=== PATIENT | male | born 1960 | race Two or more races ===

== ENCOUNTER 2018-03-14 15:04 | Observation (INO) | payer OTHER ==
[~2018-03-14] VITALS: Ht 175.3 cm; Wt 90.3 kg
[~2018-03-14 15:04] MED LIST: BACL20TA PO; IBUP-1060 PO; LISI10TA2 PO; OXYC5CAP PO; PANT40TA5 PO
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
--- NOTE | 2018-03-14 15:26 | EKG ---
[facility] [address] [place] [address] Test Date: 2018-03-14 Test Time: 15:12:18 Pat Name: DOUG REY Department: Room: Gender: M Front End Architect: : [id number] Requested By: VENTURA HUNTLEY Order Number: [id number] Reading MD: Steven Armenta MD Measurements Intervals Harriet Rate: 88 P: 26 PA: 172 QRS: 14 QRSD: 76 T: 45 QT: 346 QTc: 422 Interpretive Statements SINUS RHYTHM Electronically Signed On 03-15-2018 10:02:01 SUPERINTENDENT STATIONS by Steven Armenta MD
--- NOTE | 2018-03-14 15:45 | RAD ---
Exam: AP portable chest History: Chest pain for 4 days, hypertension. Comparison: September 20, 2015. Findings: The heart and mediastinal structures are within normal limits for size. Lungs are without infiltrate. No pleural effusion or pneumothorax is identified. Impression: 1. No acute cardiopulmonary process. Electronically signed by: Miguel A Osborne MD (03/14/2018 3:41 PM) [facility], [facility]
[2018-03-14 15:56] LABS: BASO # 0.1 x10^3/uL (0.0-0.2); BASO % 1 % (0-3); EOS # 0.3 x10^3/uL (0.0-0.7); EOS % 5 % (0-3); HEMATOCRIT 45.6 % (39.0-53.0); HEMOGLOBIN 15.8 g/dL (13.0-17.5); LYMPH % 26 % (24-48); MEAN CORPUSCULAR HEMOGLOBIN 30 pg (25-35); MEAN CORPUSCULAR HGB CONC 35 g/dL (31-37); MEAN CORPUSCULAR VOLUME 87 fL (79-100); MONO # 0.8 x10^3/uL (0.0-1.1); MONO % 10 % (0-9); NEUT # 4.5 x10^3uL (1.8-7.7); NEUT % 58 % (31-73); PLATELET COUNT 235 x10^3/uL (140-400); RED BLOOD COUNT 5.26 x10^6/uL (4.30-5.70); RED CELL DISTRIBUTION WIDTH 13.1 % (11.5-14.5); WHITE BLOOD COUNT 7.6 x10^3/uL (4.0-11.0)
[2018-03-14 16:05] LABS: ANION GAP 10 (6-14); BLOOD UREA NITROGEN 10 mg/dL (8-26); CARBON DIOXIDE 26 mmol/L (21-32); CHLORIDE 104 mmol/L (98-107); CREATININE 0.9 mg/dL (0.7-1.3); GFR 87.6; GLUCOSE 179 mg/dL (70-99); POTASSIUM 4.3 mmol/L (3.5-5.1); PROTHROMBIN TIME PATIENT 14.4 SEC (11.7-14.0); SODIUM 140 mmol/L (136-145)
[2018-03-14 16:18] LABS: ALBUMIN 3.9 g/dL (3.4-5.0); ALK PHOS 102 U/L (46-116); ALT (SGPT) 112 U/L (16-63); AST (SGOT) 43 U/L (15-37); DIRECT BILIRUBIN < 0.1 mg/dL (0.0-0.2); LIPASE 134 U/L (73-393); TOTAL BILIRUBIN 0.4 mg/dL (0.2-1.0); TOTAL PROTEIN 7.3 g/dL (6.4-8.2)
[2018-03-14 17:26] VITALS: BP 150/92
[2018-03-14] MEDS ORDERED: LOSA-73 PO (17:36)
[2018-03-14] MEDS ORDERED: ASPI-612 PO (17:56)
[2018-03-14] MEDS: ACETAMINOPHEN 325 MG TABLET. PO PRN (18:17)
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
[2018-03-14] MEDS ORDERED: BACLOFEN 10 MG TABLET. PO PRN (18:34)
[2018-03-14] MEDS ORDERED: oxyCODONE IR 5 MG TABLET PO PRN (18:34)
[2018-03-14 19:00] VITALS: BP 128/77
[2018-03-14] MEDS ORDERED: BACLOFEN 10 MG TABLET. PO SCH (21:00)
[2018-03-14] MEDS ORDERED: oxyCODONE IR 5 MG TABLET PO SCH (21:00)
[2018-03-14 23:00] VITALS: BP 132/78
[2018-03-15 03:00] VITALS: BP 118/64
[2018-03-15 05:13] LABS: BASO # 0.1 x10^3/uL (0.0-0.2); BASO % 1 % (0-3); EOS # 0.6 x10^3/uL (0.0-0.7); EOS % 10 % (0-3); HEMATOCRIT 45.8 % (39.0-53.0); HEMOGLOBIN 15.9 g/dL (13.0-17.5); LYMPH # 1.6 x10^3/uL (1.0-4.8); LYMPH % 29 % (24-48); MEAN CORPUSCULAR HEMOGLOBIN 30 pg (25-35); MEAN CORPUSCULAR HGB CONC 35 g/dL (31-37); MEAN CORPUSCULAR VOLUME 87 fL (79-100); MONO # 0.8 x10^3/uL (0.0-1.1); MONO % 14 % (0-9); NEUT # 2.6 x10^3uL (1.8-7.7); NEUT % 46 % (31-73); PLATELET COUNT 209 x10^3/uL (140-400); RED BLOOD COUNT 5.28 x10^6/uL (4.30-5.70); WHITE BLOOD COUNT 5.6 x10^3/uL (4.0-11.0)
[2018-03-15 05:23] LABS: CALCIUM 9.1 mg/dL (8.5-10.1); CREATININE 0.9 mg/dL (0.7-1.3); GFR 87.6; POTASSIUM 4.2 mmol/L (3.5-5.1)
[2018-03-15 05:32] LABS: CHOLESTEROL/HDL RATIO 4.1
[2018-03-15 07:00] VITALS: BP 138/83
[2018-03-15] MEDS ORDERED: PANTOPRAZOLE 40 MG TABLET.DR. PO SCH (07:30)
[2018-03-15 08:31] VITALS: BP 138/83
[2018-03-15] MEDS: ACETAMINOPHEN 325 MG TABLET. PO PRN (08:31)
[2018-03-15] MEDS ORDERED: ASPIRIN ENTERIC COATED 81 MG TABLET.DR. PO SCH (09:00)
[2018-03-15] MEDS ORDERED: LISINOPRIL 10 MG TABLET PO SCH (09:00)
[2018-03-15] MEDS ORDERED: LOSARTAN POTASSIUM 50 MG TABLET. PO SCH (09:00)
--- NOTE | 2018-03-15 10:29 | CONS ---
DATE OF CONSULTATION: 03/15/2018 please see consult dictation MTDD
--- NOTE | 2018-03-15 10:52 | CONS ---
DATE OF CONSULTATION: 03/15/2018 REASON FOR CONSULTATION: Chest pain. HISTORY OF PRESENT ILLNESS: The patient is a pleasant 57-year-old man coming to the hospital in the setting of atypical chest pain. Due to language barrier, most of the information is obtained from the chart and translation from his son. He apparently had some chest pain over the course of the last several months and reports that he may have had a cardiac catheterization through [facility]. Currently, he denies any chest pain and denies any chest pain with activities such as working or walking. No syncope or palpitations. He reports some chest pain that kind of goes down to his arm and is sharp in nature over his left chest, but otherwise no significant alleviating or exacerbating factors. PAST MEDICAL HISTORY: 1. Hypertension. 2. Tobacco abuse. FAMILY HISTORY: Notable for dyslipidemia. REVIEW OF SYSTEMS: Negative for 10 out of 14 systems reviewed, unless otherwise mentioned above in the HPI. CARDIOVASCULAR MEDICATIONS: Currently only on losartan and aspirin. PHYSICAL EXAMINATION: VITAL SIGNS: Stable. GENERAL: Alert and oriented x 3. HEAD AND NECK EXAMINATION: Unremarkable. CARDIAC: Regular rate and rhythm, without any murmurs, rubs or gallops. LUNGS: Clear to auscultation bilaterally. ABDOMEN: Soft, nontender and nondistended. EXTREMITIES: No clubbing, cyanosis or edema. NEUROLOGIC: No focal deficits. MUSCULOSKELETAL: No trauma. DIAGNOSTIC STUDIES: Cardiac enzymes negative x 3, with a negative EKG and normal chest x-ray. IMPRESSION: Atypical chest pain with presumed normal cardiac catheterization at 4 months ago. RECOMMENDATIONS: Continue risk-factor modification including tobacco cessation, aspirin and blood pressure management. Lipid control per primary care physician on an outpatient setting. We will await records from [facility]. If there is no significant coronary disease, okay to safely discharge; otherwise, could consider outpatient stress testing. Thank you for this consultation. BECKI ARELLANO MD DR: ROGELIO/david JOB#: [id number] / [id number]
--- NOTE | 2018-03-15 11:27 | PDOC3 ---
IM DISCHARGE SUMMARY Date of Admission Date of Admission Date of Admission: Mar 14, 2018 at 16:16 Date of Discharge Date of Discharge March 15, 2018 Primary Diagnosis Primary Diagnosis Chest pain- musculoskeletal: Hypertension Gastroesophageal reflux disease Consults Consults Fredy Talley MD Labs Labs Laboratory Tests Test 03/14/18 15:45 03/14/18 19:40 03/14/18 23:20 03/15/18 05:00 White Blood Count 7.6 x10^3/uL (4.0-11.0) 5.6 x10^3/uL (4.0-11.0) Red Blood Count 5.26 x10^6/uL (4.30-5.70) 5.28 x10^6/uL (4.30-5.70) Hemoglobin 15.8 g/dL (13.0-17.5) 15.9 g/dL (13.0-17.5) Hematocrit 45.6 % (39.0-53.0) 45.8 % (39.0-53.0) Mean Corpuscular Volume 87 fL (79-100) 87 fL (79-100) Mean Corpuscular Hemoglobin 30 pg (25-35) 30 pg (25-35) Mean Corpuscular Hemoglobin Concent 35 g/dL (31-37) 35 g/dL (31-37) Red Cell Distribution Width 13.1 % (11.5-14.5) 13.0 % (11.5-14.5) Platelet Count 235 x10^3/uL (140-400) 209 x10^3/uL (140-400) Neutrophils (%) (Auto) 58 % (31-73) 46 % (31-73) Lymphocytes (%) (Auto) 26 % (24-48) 29 % (24-48) Monocytes (%) (Auto) 10 % (0-9) 14 % (0-9) Eosinophils (%) (Auto) 5 % (0-3) 10 % (0-3) Basophils (%) (Auto) 1 % (0-3) 1 % (0-3) Neutrophils # (Auto) 4.5 x10^3uL (1.8-7.7) 2.6 x10^3uL (1.8-7.7) Lymphocytes # (Auto) 2.0 x10^3/uL (1.0-4.8) 1.6 x10^3/uL (1.0-4.8) Monocytes # (Auto) 0.8 x10^3/uL (0.0-1.1) 0.8 x10^3/uL (0.0-1.1) Eosinophils # (Auto) 0.3 x10^3/uL (0.0-0.7) 0.6 x10^3/uL (0.0-0.7) Basophils # (Auto) 0.1 x10^3/uL (0.0-0.2) 0.1 x10^3/uL (0.0-0.2) Prothrombin Time 14.4 SEC (11.7-14.0) Prothromb Time International Ratio 1.2 (0.8-1.1) Activated Partial Thromboplast Time 28 SEC (24-38) Sodium Level 140 mmol/L (136-145) 143 mmol/L (136-145) Potassium Level 4.3 mmol/L (3.5-5.1) 4.2 mmol/L (3.5-5.1) Chloride Level 104 mmol/L (98-107) 106 mmol/L (98-107) Carbon Dioxide Level 26 mmol/L (21-32) 27 mmol/L (21-32) Anion Gap 10 (6-14) 10 (6-14) Blood Urea Nitrogen 10 mg/dL (8-26) 12 mg/dL (8-26) Creatinine 0.9 mg/dL (0.7-1.3) 0.9 mg/dL (0.7-1.3) Estimated GFR (Cockcroft-Gault) 87.6 87.6 Glucose Level 179 mg/dL (70-99) 117 mg/dL (70-99) Calcium Level 9.0 mg/dL (8.5-10.1) 9.1 mg/dL (8.5-10.1) Total Bilirubin 0.4 mg/dL (0.2-1.0) Direct Bilirubin < 0.1 mg/dL (0.0-0.2) Aspartate Amino Transf (AST/SGOT) 43 U/L (15-37) Alanine Aminotransferase (ALT/SGPT) 112 U/L (16-63) Alkaline Phosphatase 102 U/L (46-116) Troponin I Quantitative < 0.017 ng/mL (0.000-0.055) < 0.017 ng/mL (0.000-0.055) < 0.017 ng/mL (0.000-0.055) JK-Lxa-Y-Type Natriuretic Peptide 12 pg/mL (0-124) Total Protein 7.3 g/dL (6.4-8.2) Albumin 3.9 g/dL (3.4-5.0) Lipase 134 U/L (73-393) Triglycerides Level 67 mg/dL (0-150) Cholesterol Level 123 mg/dL (0-200) LDL Cholesterol, Calculated 80 mg/dL (0-100) VLDL Cholesterol, Calculated 13 mg/dL (0-40) Non-HDL Cholesterol Calculated 93 mg/dL (0-129) HDL Cholesterol 30 mg/dL (40-60) Cholesterol/HDL Ratio 4.1 Brief hospital course Brief hospital course This 57 year old male who presented with chest pain with the pain on the left side of the chest radiating to the right shoulder was admitted for further evaluation and management. Cardiac workup was negative during the stay in the hospital. Serial EKG and troponin were unremarkable. Patient had a cardiac catheterization at [facility] 4 months ago[address]iscussed with Dr. Armenta who is waiting for that report. It is presumed normal. Once we get the records and if patient remains stable he will be discharged home. There is some language barrier. The pain atypical and likely musculoskeletal. I discussed with the patient and if he remains stable he'll go home on current home medications. I'll not give him any oxycodone as he does not have any need for that medicine. He also has history of heavy alcohol intake. I advised him to see Dr. Montague as outpatient in 5 days. Condition at the time of discharge stable For more details regarding the past history, family history, social history, surgical history and other details, please refer to History and Physical. Medications Medications reviewed and reconciled for discharge. Allergy Allergies Coded Allergies Type Severity Reaction Last Updated Verified No Known Drug Allergies 09/20/15 No Follow up With Dr. Montague in 5 days. DISPOSITION: Home Comments Discharge Management - 35 minutes. For other details please refer to discharge instructions ELISA KNIGHT MD Mar 15, 2018 11:27
--- NOTE | 2018-03-15 11:29 | DISCH ---
DISCHARGE INSTRUCTIONS Condition on Discharge Condition on Discharge: Stable Activity After Discharge Activity Instructions for Disc: Activity as tolerated Weight Bearing Status after Di: Full weight bearing Diet after Discharge Diet after Discharge: Cardiac, Regular Contacting the DRElana after DC Call your doctor for: Concerns you may have Follow-Up Follow up with: Dr. Montague in 5 days Treatment/Equipment after DC Adaptive Equipment Issued: None ELISA KNIGHT MD Mar 15, 2018 11:29
== END 2018-03-15 12:05 | disposition home or self-care (01) ==
LOC: ER 15:04 → CVICU 16:16 → 1 WEST ICU 03-15 07:25
PROVIDERS: ADMIT Internal Medicine; ATTEND Internal Medicine
DX: I10 Essential (primary) hypertension (principal); K21.9 Gastro-esophageal reflux disease without esophagitis; F17.210 Nicotine dependence, cigarettes, uncomplicated
CPT/HCPCS: 36415; 71045; 80048; 80061; 80076; 83690; 83880; 84484; 85025; 85610; 85730; 93005; 99284; G0378; G0379

== ENCOUNTER → 2019-02-06 | Outpatient (CLI) | payer OTHER ==
[~2019-02-06] MED LIST changes: +ASPI-612 PO; +CONTRAST GIVEN. MC PRN; +IOHEXOL 240 MG/ML 50ML VIAL. PO ONE; +IOHEXOL 300 MG/ML 100ML VIAL. IV ONE; +LOSA-73 PO; -PANT40TA5 PO; +PANT40TA77 PO
--- NOTE | 2019-02-06 15:28 | RAD ---
CT ABD PELV W/ORAL IV CONTRAST Indication: Diverticulosis. Exposure: One or more of the following individualized dose reduction techniques were utilized for this examination: 1. Automated exposure control 2. Adjustment of the mA and/or kV according to patient size 3. Use of iterative reconstruction technique. Technique: Intravenous contrast was given. Oral contrast was given. Comparison: None FINDINGS: Lung bases are clear. Liver is not enlarged and demonstrates no focal mass. Spleen unremarkable. Pancreas unremarkable. No evidence of adrenal mass. Tiny subcentimeter lesion of the left kidney is too small to characterize but may represent a cyst. No evidence of hydronephrosis. No calcified gallstone. Aorta is nonaneurysmal. Small aortocaval, mesenteric and inguinal lymph nodes are seen without evidence of pathologic enlargement. No significant small bowel distention. Colonic diverticulosis. No evidence of acute colitis. Appendix appears normal and opacifies with oral contrast media. No evidence of significant ascites. No evidence of pneumoperitoneum. Urinary bladder appears unremarkable. No evidence of pelvic mass. Vertebral body height and alignment are intact with spondylosis. Degenerative spurring at the left sacroiliac joint with a bridging osteophyte. Transitional anatomy at the left lumbosacral junction with pseudoarthrosis IMPRESSION: 1. Colonic diverticulosis without evidence of acute diverticulitis. 2. Tiny subcentimeter left renal lesion, too small to characterize but may represent a cyst. 3. Transitional anatomy at the left lumbosacral junction with degenerative changes and pseudarthrosis. Electronically signed by: Miguel A Jenkins MD (02/06/2019 3:25 PM) [id number]
== END | disposition home or self-care (01) ==
LOC: CT 08:47
PROVIDERS: ATTEND Internal Medicine
DX: K57.30 Diverticulosis of large intestine without perforation or abscess without bleeding (principal); N28.89 Other specified disorders of kidney and ureter; M47.817 Spondylosis without myelopathy or radiculopathy, lumbosacral region; M25.78 Osteophyte, vertebrae; M77.8 Other enthesopathies, not elsewhere classified
CPT/HCPCS: 74177; Q9966; Q9967

== ENCOUNTER → 2019-03-20 | Day surgery (SDC) | payer OTHER ==
[~2019-03-20] MED LIST changes: -CONTRAST GIVEN. MC PRN; +FAMO40TA4 PO; +HYDR25SU4 RC; +HYDROmorphone 2 MG/ML VIAL IV PRN; -IOHEXOL 240 MG/ML 50ML VIAL. PO ONE; -IOHEXOL 300 MG/ML 100ML VIAL. IV ONE; +IV RINGERS,LACTATED 1000ML 1,000 ML IV SCH; +LIDOCAINE 1% PF 2 ML VIAL. ID PRN; +LIDOCAINE 2% PF 5 ML VIAL. ONE; +MORPHINE SULFATE 2 MG/ML VIAL. IV PRN; +ONDANSETRON PF 4 MG/2 ML VIAL. IV PRN; +PROCHLORPERAZINE 10 MG/2 ML VIAL. IV PRN; +PROPOFOL 40 ML IV ONE; +fentaNYL PF VIAL 100 MCG/2 ML VIAL IV PRN
[2019-03-20 08:20] VITALS: BP 126/84
--- NOTE | 2019-03-20 17:18 | CONS ---
DATE OF CONSULTATION: 03/20/2019 REASON FOR CONSULTATION: Diffused abdominal pain and diarrhea. HISTORY OF PRESENT ILLNESS: A 58-year-old male who has past medical history significant for diverticulosis, bowel obstruction, epigastric abdominal pain as well as high blood pressure. He is seen with ongoing symptoms, interval CT scan was unrevealing for mass or obstruction. He has had intermittent diarrhea with continued issues, requests additional evaluation. PAST MEDICAL HISTORY: Diverticulosis, proctitis, abdominal pain and hypertension. ALLERGIES: None. MEDICATIONS: Pepcid 40 mg daily, Anucort 25 mg suppositories daily and losartan 50 mg daily. ALLERGIES: He has no allergies. FAMILY AND SOCIAL HISTORY: He is a former smoker and a social drinker. SURGICAL HISTORY: Noncontributory. REVIEW OF SYSTEMS: Per records. PHYSICAL EXAMINATION: GENERAL: Reveals a well-nourished male. VITAL SIGNS: Temperature is 97.2, pulse 96, respirations 20. HEENT: Normocephalic, atraumatic head. Pupils and extraocular muscles are not tested. Sclerae anicteric. NECK: Supple. LUNGS: Clear. CARDIOVASCULAR: Reveals an S1, S2 without S3, S4 or appreciable murmur. ABDOMEN: With a soft abdomen with diffuse abdominal tenderness. EXTREMITIES: Reveals no cyanosis, clubbing or edema. IMPRESSION: Diffuse abdominal pain with heartburn and diarrhea, etiology is to be determined. Differential includes Crohn's, ulcerative colitis, colon and gastric cancer, Bernstein's, small bowel malabsorption and pancreatic insufficiency. Therefore, recommend upper endoscopy and colonoscopy to further assess. Risks and benefits of procedure including risk of hemorrhage and perforation during the operation have been discussed. The patient is willing to proceed at this time. SEGUNDO GARCIA MD DR: CONNIE/david JOB#: [id number] / [id number]
--- NOTE | 2019-03-23 14:07 | PATHOLOGY ---
[facility] Accession Number: [id number] . 01 Material submitted: . stomach - ANTRUM BX . 01 Clinical history: . Pre-OP DX: Abdominal pain Post-OP DX: Ulcers (gastric) . 02 Diagnosis: Gastric biopsies, antrum: - Chronic gastritis, mild to moderate, with focal acute inflammation. (JPM:john; 03/23/2019) QMS 03/23/2019 1012 Local . 02 Comment: Sections of the gastric antral biopsy show congestion and mild to moderate chronic inflammation. One of the biopsy segments shows focal acute inflammation, which is presumed to be near an area of ulceration. A properly controlled immunoperoxidase stain for Helicobacter is obtained. No Helicobacter organisms are identified. There is no evidence of malignancy. (JPM:john; 03/23/2019) . . Special stain performed: Immunoperoxidase stain for Helicobacter on A1 . 02 Electronically signed: . Luis Fernando Preciado MD, Pathologist NPI- [id number] . 01 Gross description: . Received in formalin labeled "Michael Lamb, antrum BX," are 5 segments of zaragoza soft tissue measuring 0.9 x 0.7 x 0.3 cm in aggregate dimensions and ranging from 0.3 to 0.4 cm in maximum dimension. The specimen is submitted entirely in cassette A1. (TSD; 03/20/2019) TOB/TOB 03/20/2019 2258 Local . 02 Pathologist provided ICD-10: K29.00, K29.50 . 02 CPT . 023683, [id number] Specimen Comment: A courtesy copy of this report has been sent to [phone] Specimen Comment: [id number] Specimen Comment: Report sent to and Performed at: 01 [facility] [address], [place] [id number] MD Robin Martínez MD Phone: [phone] Performed at: 02 [facility] [address], [place] [id number] MD Luis Fernando Preciado MD Phone: [phone]
== END ==
LOC: ENDOS 06:04
PROVIDERS: ATTEND Internal Medicine Gastroenterology
DX: R19.7 Diarrhea, unspecified (principal); K57.30 Diverticulosis of large intestine without perforation or abscess without bleeding; K25.9 Gastric ulcer, unspecified as acute or chronic, without hemorrhage or perforation; K62.89 Other specified diseases of anus and rectum; K64.0 First degree hemorrhoids; I10 Essential (primary) hypertension; Z87.891 Personal history of nicotine dependence; Z72.89 Other problems related to lifestyle
CPT/HCPCS: 43239; 45378; 88305; 88342; J2001; J2704